=== PATIENT | male | born 1955 | race African-American/Black ===

== ENCOUNTER 2024-03-01 12:12 | Emergency (ER) | payer OTHER ==
[~2024-03-01] VITALS: Ht 172.7 cm; Wt 85.3 kg
--- NOTE | 2024-03-01 13:15 | DVH ---
Procedure: CT CHEST WITHOUT CONTRAST Reason for study/Clinical History: R/o rib fractures Comparison Study: None available at time of dictation. Exam Date: 03/01/2024 12:29 PM TECHNIQUE: Multidetector CT of the chest was performed from the lung apices to the upper abdomen with out the use of intravenous contract. Axial, coronal and sagittal multiplanar reformats were performed . Radiation Dose Information: CT Dose: CTDI volume is 12.23 mGy. Dose-length product is 460.14 mGy*cm The dose indicators for CT are the volume Computed Tomography (CT) Dose Index (CTDIvol) and the Dose Length Product (DLP), and are measured in units of mGy and mGy-cm, respectively. These indicators are not patient dose, but values generated from the CT scanner acquisition factors. The report includes radiation exposure data for exposures received during this examination. FINDINGS: The thyroid gland is unremarkable. Heart size is within normal limits. No evidence of aortic aneurysm. Pulmonary trunk is normal in siz e. No significant mediastinal lymphadenopathy. Small pericardial recess fluid is noted. No pneumothorax or pleural effusion . Bibasilar atelectasis. Minimal right apical paraseptal emphysem atous changes. Patchy right posterior medial basilar consolidation Calcified granulomas within the liver and spleen. 1.5 cm hypodense left renal lesion which may repres ent a hemorrhagic/proteinaceous cyst. Mild gastric wall thickening. Otherwise, partial view of the u pper abdomen is unremarkable. Multilevel mild loss of vertebral body height of the thoracic spine with about 40-50% loss of superi or anterior vertebral body height of T12 of unknown chronicity. Acute fracture of right posterolateral ribs 7, 8, and 9 with acute fracture of right posterior rib 10 with associated mild soft tissue edema. IMPRESSION: Bibasilar atelectasis with patchy right posterior medial consolidation which may represent atelectasi s / contusion with infectious process not excluded. Acute fracture of right posterolateral ribs 7, 8, and 9 with acute fracture of right posterior rib 10 with associated mild soft tissue edema. Multilevel loss of vertebral heights of the thoracic spine of unknown chronicity. MRI would be helpfu l to determine chronicity.
--- NOTE | 2024-03-01 13:26 | ED.PDOC ---
Kellie. trauma (HPI) HPI Comments 69-year-old male with past medical history pertinent for HTN, hyperlipidemia, presents to ED for right posterior rib pain x2 days, status post mechanical slip and fall at home. Patient reports that he landed with his posterior ribs on the toilet. He currently rates his pain as 10/10 in severity. Patient denies any head injury, LOC, nausea, vomiting. He denies any shortness of breath, abdominal pain, chest pain, numbness, tingling. No alleviating or aggravating factors. Chief Complaint: Fall Injury Time Seen by MD: 12:26 Primary Care Provider: GLENDY Guerrero notes: Nurses Notes, Medications, Allergies Allergies: Coded Allergies: Penicillins (Verified Allergy, Unknown, 06/17/15) Mode of Arrival: Ambulatory Past Medical History PAST MEDICAL HISTORY: High Lipids, HTN Surgical History: Denies all surgeries Family History Family History: Unknown Social History Smoker: Non-Smoker Alcohol: Denies ETOH Use Drugs: Denies Drug Use Lives In: Home Constitutional: denies: chills, diaphoresis, fatigue, fever, malaise, sweats, weakness, others EENTM: denies: blurred vision, double vision, ear bleeding, ear discharge, ear drainage, ear pain, ear ringing, eye pain, eye redness, hearing loss, mouth pain, mouth swelling, nasal discharge, nose bleeding, nose congestion, nose pain, photophobia, tearing, throat pain, throat swelling, voice changes, others Respiratory: denies: cough, hemoptysis, orthopnea, SOB at rest, shortness of breath, SOB with excertion, stridor, wheezing, others Cardiovascular: denies: chest pain, dizzy spells, diaphoresis, Dyspnea on exertion, edema, irregular heart beat, left arm pain, lightheadedness, palpitations, PND, syncope, others Gastrointestinal: denies: abdomen distended, abdominal pain, blood streaked bowels, constipated, diarrhea, dysphagia, difficulty swallowing, hematemesis, melena, nausea, poor appetite, poor fluid intake, rectal bleeding, rectal pain, vomiting, others Genitourinary: denies: burning, dysuria, flank pain, frequency, hematuria, incontinence, penile discharge, penile sore, pain, testicle pain, testicle swelling, urgency, others Neurological: denies: dizziness, fainting, headache, left sided numbness, left sided weakness, numbness, paresthesia, pre-existing deficit, right sided numbness, right sided weakness, seizure, speech problems, tingling, tremors, weakness, others Musculoskeletal: reports: others (Posterior rib pain); denies: back pain, gout, joint pain, joint swelling, muscle pain, muscle stiffness, neck pain Integumetry: denies: bruises, change in color, change in hair/nails, dryness, laceration, lesions, lumps, rash, wounds, others Allergic/Immunocompromised: denies: Difficulty Healing, Frequent Infections, Hives, Itching, others Hematologic/Lymphatic: denies: anemia, blood clots, easy bleeding, easy br uising, swollen glands, others Endocrine: denies: excessive hunger, excessive sweating, excessive thirst, excessive urination, flushing, intolerance to cold, intolerance to heat, unexplained weight gain, unexplained weight loss, others Psychiatric: denies: anxiety, bipolar disorder, depression, hopeless, panic disorder, schizophrenia, sleepless, suicidal, others All Other Systems: Reviewed and Negative Physical Exam General Appearance: No Apparent Distress, Normal HEENT: Normal ENT Inspection, Pharynx Normal, TMs Normal Neck: Full Range of Motion, Non-Tender, Normal, Normal Inspection Respiratory: Chest Non-Tender, Lungs Clear, No Accessory Muscle Use, No Respiratory Distress, Normal Breath Sounds, Other (Tenderness to palpation to the right posterior ribs.) Cardiovascular: No Edema, No JVD, No Murmur, No Gallop, Normal Peripheral Pulses, Regular Rate/Rhythm Breast Exam: Deferred Gastrointestinal: No Organomegaly, Non Tender, No Pulsatile Mass, Normal Bowel Sounds, Soft Genitalia: Deferred Pelvic: Deferred Rectal: Deferred Extremities: No calf tenderness, Normal capillary refill, Normal inspection, Normal range of motion, Non-tender, No pedal edema Musculoskeletal : Apperance: Normal Neurologic: Alert, laundrette owner II-XII nml as Tested, No Motor Deficits, Normal Affect, Normal Mood, No Sensory Deficits Cerebellar Function: Normal Reflexes: Normal Skin: Dry, Normal Color, Warm Lymphatic: No Adenopathy Was a procedure done? Was a procedure done?: No Differential Diagnosis Multiple Trauma: Fractures, Pneumothorax, Pulmonary Contusion X-Ray, Labs, Meds, VS Vital Signs Date Time Temp Pulse Resp B/P (MAP) Pulse Ox O2 Delivery O2 Flow Rate FiO2 03/01/24 12:28 98.5 90 18 128/69 (88) 95 X-Ray, Labs, Meds, VS Comment CT Chest IMPRESSION: Bibasilar atelectasis with patchy right posterior medial consolidation which may represent atelectasis / contusion with infectious process not excluded. Acute fracture of right posterolateral ribs 7, 8, and 9 with acute fracture of right posterior rib 10 with associated mild soft tissue edema. Multilevel loss of vertebral heights of the thoracic spine of unknown chronicity. MRI would be helpful to determine chronicity. MDM: Patient with history as above presented with posterior rib pain. History obtained from patient. Patient was nontoxic, stable, afebrile, ambulatory, no acute distress. Exam as above. Independently reviewed imaging. CT of the chest showed fracture of the right posterolateral ribs 7, 8, 9 and right posterior rib 10 fracture. Reviewed external records. All findings were discussed with the patient. Differential diagnosis considered. Overall presentation is consistent with multiple rib fractures. Low suspicion for pneumothorax, hemothorax, TBI, intracranial bleed. Patient was treated with [place] with improvement in symptoms. Patient was reevaluated and vital signs were reviewed. Consideration was given for admission, but the patient was stable for outpatient management. Prescribed ibuprofen and [place] for outpatient treatment. Disposition: Discussed the need to follow up diagnostics, including incidental findings. Discharged the patient with instructions to obtain outpatient follow up in 1-2 days of today's symptoms and findings, with strict return precautions if patient develops new or worsening symptoms. This medical document was created using the [employer] dictation system. Although this document has been carefully reviewed, there may still be some ph onetic and typographical errors, which are due to imperfections of the software program, and do not reflect any compromise in the patient's medical care. Time of 1ST Reevaluation: 13:25 Reevaluation 1ST: Improved Patient Education/Counseling: Diagnosis, Treatment, Prognosis, Need For Follow Up Family Education/Counseling: No Family Present Departure 1 Departure Time of Disposition: 13:25 Impression: Primary Impression: Ribs, multiple fractures Qualified Codes: S22.41XA - Multiple fractures of ribs, right side, initial encounter for closed fracture Disposition: 01 HOME / SELF CARE / HOMELESS Condition: Fair e-Prescriptions Ibuprofen Micronized (Ibuprofen) 600 Mg Tab 600 MG PO Q6HP PRN, #30 TAB Prov: MELLY GUSMAN PAC 03/01/24 Hydrocodone-Acetaminophen (Hydrocodone Bitartrate/AC 5-325 mg) 1 Tab Tab 1 TAB PO Q6HPRN PRN, #20 TAB Prov: MELLY GUSMAN PAC 03/01/24 Critical Care Note Critical Care Time?: No Stability Stability form required: No Heart Score Heart Score: Heart Score Response (Comments) Value History N/A 0 EKG N/A 0 Age N/A 0 Risk Factors N/A 0 Troponin N/A 0 Total 0 MELLY GUSMAN PAC Mar 01, 2024 13:26
[2024-03-01] MEDS ORDERED: IBUP1TAB5 PO (14:00)
[2024-03-01] MEDS ORDERED: HYDR-4902 PO (14:00)
[2024-03-01] MEDS: HYDROcodone-ACET 5/325MG TAB PO ONE (14:15)
[2024-03-01 14:24] VITALS: BP 127/68; PULSE 79; TEMP 98
[2024-03-01 14:25] VITALS: RESP 22; O2SAT 92
== END 2024-03-01 14:27 | disposition home or self-care (01) ==
LOC: ER 12:12
DX: S22.41XA Multiple fractures of ribs, right side, initial encounter for closed fracture (principal); I10 Essential (primary) hypertension; E78.5 Hyperlipidemia, unspecified; Z88.0 Allergy status to penicillin; W01.0XXA Fall on same level from slipping, tripping and stumbling without subsequent striking against object, initial encounter; Y93.89 Activity, other specified; Y92.098 Other place in other non-institutional residence as the place of occurrence of the external cause; Y99.8 Other external cause status
CPT/HCPCS: 71250